=== PATIENT | female | born 1960 | race Caucasian/White ===

== ENCOUNTER 2017-08-27 18:33 | Emergency (ER) | payer BC ==
--- NOTE | 2017-08-28 00:52 | ER ---
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 Denies any urinary symptoms, vomiting, diarrhea, or fever. Admits to eating pistachios quite a bit while in [place]. Exam remarkable for nontoxic, acutely uncomfortable, afebrile female. Tender left lower quadrant. CT shows isolated diverticulitis of splenic flexure. WBC 10.1, lactic 0.7, CRP 1.0, lipase 160. UA negative. The patient given IV fluids, Zofran, Toradol, and Dilaudid with relief of pain. Tolerated Cipro 500 mg b.i.d. x10 days first dose in department and Flagyl 500 mg t.i.d. x10 days first dose in department well. Road tested well. Advised clear liquid diet, advance to high soluble fiber diet. Follow up Dr. Pettit this week. Luis E Rizo MD/ modl JOB #: [id number] CC: Cheikh Akbar MD, Attending Physician Patrick Pettit MD, Family Physician Patrick Pettit MD
== END 2017-08-27 21:30 | disposition home or self-care (01) ==
LOC: ER 18:33
DX: K57.32 Diverticulitis of large intestine without perforation or abscess without bleeding (principal); Z90.710 Acquired absence of both cervix and uterus; Z79.899 Other long term (current) drug therapy